=== PATIENT | male | born 1975 | race African-American/Black ===

== ENCOUNTER 2023-12-31 07:06 | Emergency (ER) | payer OTHER, SELFPAY ==
--- OUTSIDE RECORDS SUMMARY | 2023-12-31 07:09 | XMS REPORT | Continuity of Care Document ---
Author Name Unknown Address [address] [place] [address] [address] [place] [address] [facility] thconnect Address [address] [place] [address] [address] [place] [address] Care Team Providers Care Center Administrator Name Role Phone LAB90 Attending Clinician Unavailable JAKE MOTA Attending Clinician Unavailab LORETO Valadez Attending Clinician Unavailable PL, TECH 1 Attending Clinician Unavailable NITIN HEREDIA Attending Clinician UnaKAELYN Ibarra Attending Clinician Unavail able [id number] Attending Clinician Unavailable Payers Payer Name Policy Type Policy Number Effective Date Expirati on Date Source CIGNA-CIGNA/PPO 2 [id number] 2022 00:00:00 Problems Condition Name Condition Details Condition Category Status Onset Date Resolution Date Last Treatment Date Treating Clinician Comments Source Hyperlipid emia Hyperlipid emia Disease Active 2021-02 00:00: 00 Winter Roberson - Externa l Primary hypertensi on Primary hypertensi on Disease Active 2021-02 00:00: 00 Winter Roberson - Externa l Type 2 diabetes mellitus without complicati on, without long-term current use of insulin (multi HCC) Type 2 diabetes mellitus without complicati on, without long-term current use of insulin (multi HCC) Disease Active 2021-02 00:00: 00 Winter Roberson - Externa l ADHD ADHD Disease Active 2021-02 00:00: 00 Winter Roberson - Externa l Allergic rhinitis Allergic rhinitis Disease Active 2021-02 00:00: 00 Winter Roberson - Externa l Gastroesop hageal reflux disease without esophagiti s Gastroesop hageal reflux disease without esophagiti s Disease Active 2021-02 00:00: 00 Winter Alvaradoa l Social History Social Habit Start Date Stop Date Quantity Comments Source Sexual orientation Eliseo espinosa Serileyirineo - External Alcoholic beverage intake 2023-11-04 00:00:00 2023-11-04 00:00:00 Current drinker of alcohol (finding) Winter rileyirineo - External Alcohol intake 2023-05-10 00:00:00 2023-05-10 00:00:00 Current drinker of alcohol (finding) Winter rileyirineo - External Tobacco use and exposure 2022-01-12 00:00:00 2022-01-12 00:00:00 Smokeless tobacco non-user Winter Roberson - External History of Social function 2022-01-12 00:00:00 2022-01-12 00:00:00 Winter Roberson - External Sex 2022-01-09 17:59:58 2022-01-09 17:59:58 Male (finding) Winter Serileyirineo - External Sex assigned at 1975 00:00:00 1975 00:00:00 Winter rileyirineo - External Smoking Status Start Date Stop Date Source Never smoked tobacco Winter Roberson - External Medications Ordered Medication Name Filled Medication Name Start Date Stop Date Current Medication? Ordering Clinician Indication Dosage Frequency Signature (SIG) Comments Components Source Levocetiriz ine Dihydrochlo ride 5 MG oral Tablet 11-03 13:31: 48 Yes 5mg Take 1 tablet (5 mg total) by mouth every day at 5:00 PM. Winter Blanchard l Glimepiride 4 MG oral Tablet 11-03 13:31: 48 Yes 4mg Take 1 tablet (4 mg total) by mouth every morning (before breakfast) . Winter Roberson - Christianoa l Levocetiriz ine Dihydrochlo ride 5 MG oral Tablet 05-09 14:51: 55 Yes 5mg Take 1 tablet (5 mg total) by mouth every day at 5:00 PM. Winter Roberson - Externa l Glimepiride 4 MG oral Tablet 05-09 14:51: 55 Yes 4mg Take 1 tablet (4 mg total) by mouth every morning (before breakfast) . Winter gleason Amphetamine -Dextroamph etamine 30 MG oral Tablet - 00:00: 00 11-03 00:00 :00 No [id number] 30mg QD Take 1 tablet (30 mg total) by mouth daily. Winter gleason Atorvastati n Calcium 10 MG oral Tablet - 00:00: 00 Yes [id number] 10mg QD Take 1 tablet (10 mg total) by mouth daily. Winter gleason OZEMPIC (0.25 or 0.5 mg/dose) 2 mg/3 mL SQ Solution Pen-Injecto r 04-16 00:00: 00 11-03 00:00 :00 No INJECT 0.5 MG SUBCUTANEO USLY WEEKLY. Winter gleason Triamcinolo ne Acetonide (KENALOG) 40 mg/mL 2022-02 20:45: 00 11-17 21:06 :00 No [id number] 40mg Winter gleason Triamcinolo ne Acetonide (KENALOG) 40 mg/mL 2022-02 20:45: 00 11-17 21:06 :00 No [id number] 1mL 40 mg (1 mL), intramuscu lar, ONCE, On Wed11/17/22 at 1545, For 1 dose Winter gleason Levocetiriz ine Dihydrochlo ride 5 MG oral Tablet 2022-02 14:58: 50 Yes 5mg Take 1 tablet (5 mg total) by mouth every day at 5:00 PM. Winter gleason Glimepiride 4 MG oral Tablet 2022-02 14:58: 50 Yes 4mg Take 1 tablet (4 mg total) by mouth every morning (before breakfast) . Winter gleason Ozempic, 2 MG/DOSE, subcutaneou s 9-13 00:00: 00 Yes INJECT TWO (2) MG UNDER THE SKIN ONCE A WEEK. Winter gleason Trazodone HCl 50 MG oral Tablet 9-12 00:00: 00 11-03 00:00 :00 No [id number] Take 1 - 2 tablets as needed at night for insomnia. Winter gleason Fenofibrate 145 MG oral Tablet - 00:00: 00 Yes [id number] 145mg QD Take 1 tablet (145 mg total) by mouth daily Winter gleason Losartan Potassium (COZAAR) 100 MG oral Tablet - 00:00: 00 Yes [id number] 100mg QD Take 1 tablet (100 mg total) by mouth daily Winter gleason Omeprazole 40 MG oral Delayed Release Capsule 03-31 00:00: 00 Yes [id number] 40mg QD Take 1 capsule (40 mg total) by mouth daily Winter gleason Atorvastati n Calcium 10 MG oral Tablet 03-31 00:00: 00 Yes [id number] 10mg Take 1 tablet (10 mg total) by mouth daily Winter gleason Amphetamine -Dextroamph etamine 30 MG oral Tablet 03-31 00:00: 00 05-09 00:00 :00 No [id number] 30mg Take 1 tablet (30 mg total) by mouth daily Winter gleason Amphetamine -Dextroamph etamine (ADDERALL XR, 30MG,) 30 MG oral Capsule 24 Hour Sustained Release 03-13 00:00: 00 04-13 05:59 :00 No [id number] 30mg Take 1 capsule (30 mg total) by mouth every morning Winter gleason OZEMPIC (0.25 or 0.5 mg/dose) 2 mg/1.5 mL SQ Solution Pen-Injecto r 03-05 00:00: 00 11-03 00:00 :00 No INJECT 0.25 MG UNDER THE SKIN ONCE WEEKLY. Winter gleason Tadalafil 20 MG oral Tablet -24 00:00: 00 Yes TAKE ONE (1) TABLET(S) BY MOUTH DAILY NEEDED 30 MINUTES BEFORE ANTICIPATE D SEXUAL INTERCOURS E. Winter gleason Amphetamine -Dextroamph etamine (ADDERALL XR, 30MG,) 30 MG oral Capsule 24 Hour Sustained Release 02-11 00:00: 00 03-14 05:59 :00 No [id number] 30mg Take 1 capsule (30 mg total) by mouth every morning Winter gleason Dicyclomine HCl 20 MG oral Tablet 2021-02 00:00: 00 Yes Winter gleason Ferrous Sulfate 325 (65 Fe) MG oral Tablet Delayed Response 2021-02 00:00: 00 11-03 00:00 :00 No Winter gleason Amphetamine -Dextroamph etamine 30 MG oral Tablet 2021-02 00:00: 00 11-17 00:00 :00 No [id number] 30mg Take 1 tablet (30 mg total) by mouth daily Winter gleason Amlodipine Besylate 10 MG oral Tablet 2021-02 00:00: 00 Yes Winter gleason Ondansetron HCl 4 MG oral Tablet 2021-02 00:00: 00 Yes Winter gleason Amphetamine -Dextroamph etamine (ADDERALL, 30MG,) 30 MG oral Tablet 2021-02 15:29: 14 Yes 30mg Take 30 mg by mouth daily Winter gleason Fenofibrate 145 MG oral Tablet 2021-02 15:29: 14 Yes 145mg Take 145 mg by mouth daily Winter gleason Losartan Potassium 100 MG oral Tablet 2021-02 15:29: 14 Yes 100mg Take 100 mg by mouth daily Winter gleason Levocetiriz ine Dihydrochlo ride 5 MG oral Tablet 2021-02 15:29: 14 Yes 5mg Take 5 mg by mouth every day at 5:00 PM Winter gleason Glimepiride 4 MG oral Tablet 2021-02 15:29: 14 Yes 4mg Take 4 mg by mouth every morning (before breakfast) Winter gleason Trazodone HCl 50 MG oral Tablet 2021-02 00:00: 00 Yes [id number] 50mg Take 1 tablet (50 mg total) by mouth nightly Take 1-2 tablets by mouth as needed for sleep Winter gleason Omeprazole 40 MG oral Delayed Release Capsule 2021-02 00:00: 00 Yes [id number] 40mg Take 1 capsule (40 mg total) by mouth daily Winter gleason Amphetamine -Dextroamph etamine (ADDERALL XR, 30MG,) 30 MG oral Capsule 24 Hour Sustained Release 2021-02 00:00: 00 02-12 05:59 :00 No [id number] 30mg Take 1 capsule (30 mg total) by mouth every morning Winter gleason Testosteron e Cypionate (DEPO-TESTO STERONE) 200 MG/ML intramuscul ar Solution 2021-02 00:00: 00 Yes Winter gleason Zolpidem Tartrate 10 MG oral Tablet 2021-02 00:00: 00 Yes Winter gleason Atorvastati n Calcium 10 MG oral Tablet 2021-02 00:00: 00 Yes Winter gleason Vital Signs Vital Name Observation Time Observation Value Comments S ource Systolic blood pressure 2023-11-04 18:23:00 118 mm[Hg] Winter bryant - External Diastolic blood pressure 2023-11-04 18:23:00 70 mm[Hg] Winter bryant - External Heart rate 2023-11-04 18:23:00 88 /min Hieu Roberson - External Body temperature 2023-11-04 18:23:00 36.61 Filomena Winter Roberson - External Respiratory rate 2023-11-04 18:23:00 18 /min Winter Roberson - External Body height 2023-11-04 18:23:00 175.3 cm Jaqueline Roberson - External Body weight 2023-11-04 18:23:00 93.157 kg Jaqueline Roberson - External BMI 2023-11-04 18:23:00 30.33 kg/m2 Jaqueline ey Seybold - External Oxygen saturation in Arterial blood by Pulse oximetry 2023-11-04 18:23:00 99 /min Winter Seybo ld - External Body height 2023-05-10 19:50:00 175.3 cm Jaqueline ey Seybold - External Body weight 2023-05-10 19:50:00 94.348 kg Jaqueline ey Seybold - External BMI 2023-05-10 19:50:00 30.72 kg/m2 Jaqueline ey Seybold - External Oxygen saturation in Arterial blood by Pulse oximetry 2023-05-10 19:50:00 98 /min Winter Seybo ld - External Systolic blood pressure 2023-05-10 19:50:00 100 mm[Hg] Winter Seybo ld - External Diastolic blood pressure 2023-05-10 19:50:00 64 mm[Hg] Winter Seybo ld - External Heart rate 2023-05-10 19:50:00 102 /min Kelse y Seybold - External Body temperature 2023-05-10 19:50:00 36.28 Filomena Winter Seybold - External Respiratory rate 2023-05-10 19:50:00 18 /min Winter Seybold - External Systolic blood pressure 2022-11-17 19:55:00 136 mm[Hg] Winter Seybo ld - External Diastolic blood pressure 2022-11-17 19:55:00 80 mm[Hg] Winter Seybo ld - External Heart rate 2022-11-17 19:55:00 80 /min Kelse y Seybold - External Body temperature 2022-11-17 19:55:00 36.61 Filomena Winter Seybold - External Respiratory rate 2022-11-17 19:55:00 18 /min Winter Seybold - External Body height 2022-11-17 19:55:00 175.3 cm Jaqueline ey Seybold - External Body weight 2022-11-17 19:55:00 91.286 kg Jaqueline ey Seybold - External BMI 2022-11-17 19:55:00 29.72 kg/m2 Jaqueline ey Seybold - External Oxygen saturation in Arterial blood by Pulse oximetry 2022-11-17 19:55:00 98 /min Winter Seybo ld - External Systolic blood pressure 2022-01-12 21:23:00 134 mm[Hg] Winter Pazo ld - External Diastolic blood pressure 2022-01-12 21:23:00 67 mm[Hg] Winter Ortiz ld - External Heart rate 2022-01-12 21:23:00 78 /min Hieu Roberson - External Body temperature 2022-01-12 21:23:00 37.06 Filomena Winter Ashleyybold - External Respiratory rate 2022-01-12 21:23:00 14 /min Winter Roberson - External Body height 2022-01-12 21:23:00 175.3 cm Jaqueline belcher Seybold - External Body weight 2022-01-12 21:23:00 86.909 kg Jaqueline belcher Seybirineo - External BMI 2022-01-12 21:23:00 28.29 kg/m2 Jaqueline belcher Seybirineo - External Oxygen saturation in Arterial blood by Pulse oximetry 2022-01-12 21:23:00 99 /min Winter Ortiz ld - External Encounters Start Date/Time End Date/Time Encounter Type Admission Type Attending Rust Care Department Encounter ID Source 2023-12-27 09:05:00 2023-12-27 09:05:00 Outpatient LAB90 WINTER THOMAS [id number] Winter janie 2023-12-13 00:00:00 2023-12-13 00:00:00 Outpatient JAKE MOTA [id number] Winter irineo 2023-11-04 13:30:00 2023-11-04 13:30:00 Outpatient JAKE MOTA [id number] Winter ybirineo 2023-11-04 00:00:00 2023-11-04 00:00:00 Outpatient LORETO SHEPPARD [id number] Winter ybirineo 2023-11-03 00:00:00 2023-11-03 00:00:00 Outpatient LORETO SHEPPARD [id number] Winter ybirineo 2023-09-26 00:00:00 2023-09-26 00:00:00 Outpatient JAKE MOTA [id number] Winter ybirineo 2023-07-26 00:00:00 2023-07-26 00:00:00 Outpatient JAKE MOTA WINTER [id number] Winter Ashleyirineo 2023-06-16 00:00:00 2023-06-16 00:00:00 Outpatient JAKE MOTA WINTER [id number] Winter Ashleyirineo 2023-06-14 13:30:00 2023-06-14 13:30:[address], TECH WINTER WINTER [id number] Winter [facility] 2023-06-14 11:00:00 2023-06-14 11:00:00 Outpatient JAKE MOTA WINTER [id number] Winter [facility] 2023-06-07 09:05:00 2023-06-07 09:05:00 Outpatient LAB90 WINTER WINTER [id number] Winter [facility] 2023-06-04 11:00:00 2023-06-04 11:00:[address], TECH WINTER WINTER [id number] Winter [facility] 2023-05-31 14:30:00 2023-05-31 14:30:[address], TECH WINTER WINTER [id number] Winter [facility] 2023-05-28 00:00:00 2023-05-28 00:00:00 Outpatient [facility] [id number] [facility] 2023-05-17 00:00:00 2023-05-17 00:00:00 Outpatient JAKE MOTA WINTER [id number] Winter [facility] 2023-05-10 14:30:00 2023-05-10 14:30:00 Outpatient JAKE MOTA [facility] [id number] [facility] 2023-05-10 00:00:00 2023-05-10 00:00:00 Outpatient LORETO SHEPPARD [id number] [facility] 2023-04-21 00:00:00 2023-04-21 00:00:00 Outpatient JAKE MOTA WINTER THOMAS [id number] [facility] 2023-04-16 00:00:00 2023-04-16 00:00:00 Outpatient NITIN HEREDIA WINTER THOMAS [id number] [facility] 2022-11-17 15:00:00 2022-11-17 15:00:00 Outpatient JAKE MOTA WINTER THOM[facility] [id number] [facility] 2022-10-19 00:00:00 2022-10-19 00:00:00 Outpatient YANTAWNYAROSAS THOMAS [id number] [facility] 2022-08-31 00:00:00 2022-08-31 00:00:00 Outpatient YAN NITIN THOMAS [id number] [facility] 2022-04-13 08:00:00 2022-04-13 08:00:00 [id number] [facility] 2022-03-30 00:00:00 2022-03-30 00:00:00 Outpatient VALARIE LORETO [facility] [id number] [facility] 2022-02-15 00:00:00 2022-02-15 00:00:00 Outpatient NITIN HEREDIA [facility] [id number] [facility] 2022-02-05 14:30:00 2022-02-05 14:30:00 Outpatient RODARTEKAELYN [facility] [id number] [facility] 2022-02-05 00:00:00 2022-02-05 00:00:00 Outpatient CINDYOSCARLORETO [facility] [id number] [facility] 2022-01-27 00:00:00 2022-01-27 00:00:00 Outpatient YAN, NITIN THOMAS [id number] [facility] 2022-01-26 00:00:00 2022-01-26 00:00:00 Outpatient NITIN HEREDIA [id number] Winter Seybold 2022-01-12 16:00:00 2022-01-12 16:00:00 Outpatient [id number] WINTER THOMAS [id number] Winter Seybold 2022-01-12 15:15:00 2022-01-12 15:15:00 Outpatient NITIN HEREDIA WINTER THOMAS [id number] Winter Roberson Notes Date/Time Note Provider Source 2023-11-04 13:31:49 Chief Complaint [facility] 2023-05-10 14:54:11 Chief Complaint Patient presents with Follow-up Med [facility]
--- NOTE | 2023-12-31 08:03 | RAD REPORT ---
EXAMINATION: ONE VIEW CHEST XR CLINICAL INDICATION: Male, 48 years old.,CHEST PAIN TECHNIQUE: Frontal chest projection is submitted. Examination is limited by patient positioning and t echnique. COMPARISON: 07/19/2016 FINDINGS: The lungs are well inflated and clear. No pneumothorax or sizable effusion. The heart is normal in s ize. Mediastinal contours are unremarkable. IMPRESSION: No acute intrathoracic abnormalities.
[2023-12-31 08:22] LABS: Absolute Eosinophils 0.2 K/uL (0-0.5); Absolute Lymphocytes (CBC) 1.2 K/uL (0.7-4.9); Absolute Monocytes 0.2 K/uL (0.1-1.3); Absolute Neutrophil 1.2 K/uL (1.8-8.0); Basophils % 0.8 % (0-1.3); Eosinophils % 7.7 % (0-4.4); Hematocrit 38.4 % (39.6-49.0); Hemoglobin 12.5 g/dL (13.6-17.9); Lymphocytes % 41.1 % (15.3-44.8); MCH 23.2 pg (27.0-35.0); MCHC 32.5 g/dL (32.0-36.0); MCV 71.5 fL (80-100); MPV 7.7 fL (7.6-11.3); Monocytes % 7.6 % (3.3-12.3); Neutrophils % 42.8 % (41.7-73.7); Nucleated Red Blood Cells % 0.2 % (0-0); PT Prothrombin Time 12.3 SECONDS (9.4-12.5); Platelets 237 thou/uL (152-406); Protime INR 1.1; RBC Red Blood Cell Count 5.37 M/uL (4.33-5.43); Red Cell Distribution Width 15.5 % (12.1-15.2)
[2023-12-31 08:33] LABS: Specific Gravity 1.012 (1.005-1.030); Urine Bilirubin NEGATIVE (Negative); Urine Blood Negative (Negative); Urine Clarity Clear (Clear); Urine Color Light-Yellow (Yellow); Urine Glucose NEGATIVE (Negative); Urine Ketones NEGATIVE (Negative); Urine Microscopic Reflex YN NO UMIC; Urine Nitrite NEGATIVE (Negative); Urine Protein NEGATIVE (Negative); Urine Urobilinogen Normal (Normal); Urine pH 6.5 (5.0-7.0)
[2023-12-31 08:43] LABS: ALT/SGPT 48 U/L (16-61); AST/SGOT 40 U/L (15-37); Albumin 4.1 g/dL (3.4-5.0); Albumin/Globulin Ratio 1.2 (1.1-1.8); Alkaline Phosphatase 50 U/L (45-117); Anion Gap 7.9 mEq/L (5.0-15.0); BUN Blood Urea Nitrogen 12 mg/dL (7-18); Bicarbonate 25 mEq/L (21-32); Bilirubin Total 0.3 mg/dL (0.2-1.0); Globulin 3.5 g/dL (2.3-3.5); Glomerular Filtration Rate 86 ml/min (=/>90); Glucose Level 126 mg/dL (74-106); Lipase 56 U/L (13-75); NT PRO-BNP 48 pg/mL (<125); Potassium 3.9 mEq/L (3.5-5.1); Protein, Total 7.6 g/dL (6.4-8.2); Sodium Level 137 mEq/L (136-145); Troponin High Sensitivity 6.9 pg/mL (<58.9)
[2023-12-31 08:44] LABS: Bilirubin Direct < 0.2 mg/dL (0-0.2); Bilirubin Indirect, Calculated 0.1 mg/dL (0.2-0.8)
[2023-12-31 09:08] LABS: Barbiturates NEGATIVE (NEGATIVE); Benzodiazepines NEGATIVE (NEGATIVE); Cocaine NEGATIVE (NEGATIVE); METHAMPHETAM NEGATIVE (NEGATIVE); Methadone NEGATIVE (NEGATIVE); Opiates NEGATIVE (NEGATIVE); Phencyclidine NEGATIVE (NEGATIVE); THC Cannibis NEGATIVE (NEGATIVE)
[2023-12-31] MEDS ORDERED: LOSARTAN POTASSIUM 50 MG TABLET ONE (09:12)
[2023-12-31] MEDS ORDERED: ASPIRIN 81 MG CHEWABLE TABLET ONE (09:12)
[2023-12-31] MEDS ORDERED: AMLODIPINE 5 MG TAB ONE (09:12)
[2023-12-31] MEDS ORDERED: FAMOTIDINE 20 MG/2 ML VIAL IV ONE (09:12)
--- NOTE | 2023-12-31 10:33 | ER ---
Nurse's Notes [facility] Name: Miguelangel Mccarthy Jr Age: 48 yrs Sex: Male : 1975 Arrival Date: 12/31/2023 Time: 07:06 Bed 14 Private MD: Diagnosis: Chest pain, unspecified;Essential (primary) hypertension;Hyperlipidemia, unspecified Presentation: 12/30 07:10 Chief complaint: Patient states: chest pressure and shortness of breath that began at ss 0300 this morning. Pt reports he has been out of his HTN and high cholesterol medications for 30 days. Coronavirus screen: Client denies travel out of the [place] in the last 14 days. Ebola Screen: Patient denies exposure to infectious person. Patient denies travel to an Ebola-affected area in the 21 days before illness onset. Initial Sepsis Screen: Does the patient meet any 2 criteria? No. Patient's initial sepsis screen is negative. Does the patient have a suspected source of infection? No. Patient's initial sepsis screen is negative. Risk Assessment: Do you want to hurt yourself or someone else? Patient reports no desire to harm self or others. Onset of symptoms was December 31, 2023. 07:10 Method Of Arrival: Ambulatory ss 07:10 Acuity: MCKINLEY 3 ss Historical: - Allergies: 07:30 No Known Allergies; ss - PMHx: 07:30 Hypertensive disorder; high cholesterol; ss - Immunization history:: Client reports receiving the 2nd dose of the Covid vaccine. - Infectious Disease History:: Denies. - Social history:: Smoking status: Patient denies any tobacco usage or history of. - Family history:: not pertinent. Screenin:32 [facility] ED Fall Risk Assessment (Adult) History of falling in the last 3 months, ph including since admission No falls in past 3 months (0 pts) Confusion or Disorientation No (0 pts) Intoxicated or Sedated No (0 pts) Impaired Gait No (0 pts) Mobility Assist Device Used No (0 pt) Altered Elimination No (0 pt) Score/Fall Risk Level 0 - 2 = Low Risk Oriented to surroundings, Maintained a safe environment, Hourly rounding (assess needs \T\ fall precautionary measures) done. Abuse screen: Denies threats or abuse. Denies injuries from another. Nutritional screening: No deficits noted. Tuberculosis screening: No symptoms or risk factors identified. Assessment: 08:00 General: Appears in no apparent distress. comfortable, well groomed, Behavior is calm, ph cooperative, appropriate for age. Pain: Complains of pain in chest Pain does not radiate. Pain began 4 hours ago. Neuro: Level of Consciousness is awake, alert, obeys commands, Oriented to person, place, time, situation. Cardiovascular: Reports chest pain, shortness of breath. Respiratory: Airway is patent Respiratory effort is even, unlabored. GI: No signs and/or symptoms were reported involving the gastrointestinal system. Derm: Skin is pink, warm \T\ dry. Vital Signs: 07:10 BP 150 / 98; Pulse 80; Resp 16; Temp 97.9(O); Pulse Ox 100% on R/A; Weight 92.99 kg; ss Height 5 ft. 9 in. ; Pain 8/10; 08:30 BP 141 / 99; Pulse 81; Resp 18; Pulse Ox 98% on R/A; ph 09:30 BP 145 / 107; Pulse 83; Resp 18; Pulse Ox 100% on R/A; ph 10:58 BP 116 / 102; Pulse 73; Resp 16; Temp 97.5; Pulse Ox 99% on R/A; Pain 0/10; ph 07:10 Body Mass Index 30.27 (92.99 kg, 175.26 cm) ss 07:10 Pain Scale: Adult ss 10:58 Pain Scale: Adult ph ED Course: 07:10 Patient arrived in ED. ra3 07:11 Anson Rowland MD is Attending Physician. brandee 07:11 Brandi Rosenberg, RN is Primary Nurse. ph 07:30 Triage completed. ss 07:30 Arm band placed on left wrist. ss 07:32 EKG done, by ED staff, reviewed by Anson Rowland MD. zm 07:50 XRAY Chest (1 view) In Process Unspecified. EDMS 08:11 Initial lab(s) drawn, by dc, sent to lab. Inserted saline lock: 20 gauge in right zm forearm, using aseptic technique. Blood collected. Flushed with 10 mL NS. 08:11 Urine collected: clean catch specimen, clear. zm 08:12 UDS Sent. zm 08:12 Urinalysis w/ reflexes Sent. zm 08:12 Lipase Sent. zm 08:12 Basic Metabolic Panel Sent. zm 08:12 CBC with Diff Sent. zm 08:12 LFT's Sent. zm 08:12 Magnesium Sent. zm 08:12 NT PRO-BNP Sent. zm 08:12 PT-INR Sent. zm 08:12 Troponin HS Sent. zm 09:33 Patient has correct armband on for positive identification. Bed in low position. Call ph light in reach. Side rails up X 1. monitoring analyst on. Pulse ox on. NIBP on. Door closed. Noise minimized. Warm blanket given. 09:33 Patient maintains SpO2 saturation greater than 95% on room air. ph 10:00 EKG done, by ED staff, reviewed by Anson Rowland MD. ph 10:09 Repeat lab(s) drawn. by dc, sent to lab. em1 10:35 Duncan Lima MD is Referral Physician[facility] 11:07 No provider procedures requiring assistance completed. IV discontinued, intact, ph bleeding controlled, No redness/swelling at site. Pressure dressing applied. Administered Medications: 09:30 Drug: Aspirin PO Chewable Tablet 324 mg PO once; 81 mg tablets x 4 Route: PO; ph 10:56 Follow up: Response: No adverse reaction ph 09:30 Drug: Norvasc PO 5 mg PO once Route: PO; ph 10:57 Follow up: Response: No adverse reaction ph 09:30 Drug: Losartan PO 50 mg PO once Route: PO; ph 10:57 Follow up: Response: No adverse reaction ph 09:30 Drug: Famotidine IVP 20 mg IVP once; dilute with 10 mL 0.9% NaCl; give over 2 minutes ph Route: IVP; Site: right wrist; 10:57 Follow up: Response: No adverse reaction ph 10:56 Drug: Atorvastatin PO 20 mg PO once Route: PO; ph 10:58 Follow up: Response: No adverse reaction ph 10:57 Not Given (Other Intervention Used): ns 0.9% 1000 ml IV at 125 ml/hr continuous ph 10:57 Drug: GI Cocktail without - (Maalox PO 30 ml, Lidocaine Mucous Membrane 2 % 15 ph ml) PO once Route: PO; 10:57 Follow up: Response: No adverse reaction ph Medication: 09:33 VIS not applicable for this client. ph Outcome: 10:33 Discharge ordered by . brandee 11:07 Discharged to home ambulatory, ph 11:07 Condition: good 11:07 Discharge instructions given to patient, Instructed on discharge instructions, follow up and referral plans. medication usage, Demonstrated understanding of instructions, follow-up care, medications, Prescriptions given X 4, 11:07 Patient left the ED. ph Signatures: Dispatcher [employer] EDAnson Arteaga MD MD cha Martinez, Alvaro em1 Stephenie Castellanos RN RN ss Hall, Patricia, RN RN ph Martinez, Chelsey Hines 3
--- NOTE | 2023-12-31 10:33 | EDPHYS ---
Physician Documentation [facility] Name: Miguelangel Mccarthy Jr Age: 48 yrs Sex: Male : 1975 Arrival Date: 12/31/2023 Time: 07:06 Bed 14 Private MD: ED Physician Anson Rowland HPI: 12/30 07:40 This 48 yrs old Black Male presents to ER via Ambulatory with complaints of Chest Pain. brandee 07:40 The patient or guardian reports chest pain that is located primarily in the substernal brandee area. Onset: 1 day(s) ago. The pain does not radiate. Associated signs and symptoms: The patient has no apparent associated signs or symptoms. The chest pain is described as aching. Modifying factors: The symptoms are alleviated by nothing. the symptoms are aggravated by nothing. Severity of pain: At its worst the pain was moderate in the emergency department the pain has resolved and did so just prior to arrival. The patient has experienced similar episodes in the past, several times. Historical: - Allergies: 07:30 No Known Allergies; ss - PMHx: 07:30 Hypertensive disorder; high cholesterol; ss - Immunization history:: Client reports receiving the 2nd dose of the Covid vaccine. - Infectious Disease History:: Denies. - Social history:: Smoking status: Patient denies any tobacco usage or history of. - Family history:: not pertinent. ROS: 07:40 Constitutional: Negative for fever, chills, and weight loss, Eyes: Negative for injury, brandee pain, redness, and discharge, ENT: Negative for injury, pain, and discharge, Neck: Negative for injury, pain, and swelling, Respiratory: Negative for shortness of breath, cough, wheezing, and pleuritic chest pain, Abdomen/GI: Negative for abdominal pain, nausea, vomiting, diarrhea, and constipation, Back: Negative for injury and pain, : Negative for injury, bleeding, discharge, and swelling, MS/Extremity: Negative for injury and deformity, Skin: Negative for injury, rash, and discoloration, Neuro: Negative for headache, weakness, numbness, tingling, and seizure, Psych: Negative for depression, anxiety, suicide ideation, homicidal ideation, and hallucinations, Allergy/Immunology: Negative for hives, rash, and allergies, Endocrine: Negative for neck swelling, polydipsia, polyuria, polyphagia, and marked weight changes, Hematologic/Lymphatic: Negative for swollen nodes, abnormal bleeding, and unusual bruising, 07:40 Cardiovascular: Positive for chest pain, Exam: 07:40 Constitutional: This is a well developed, well nourished patient who is awake, alert, brandee and in no acute distress. Head/Face: Normocephalic, atraumatic. Eyes: Pupils equal round and reactive to light, extra-ocular motions intact. Lids and lashes normal. Conjunctiva and sclera are non-icteric and not injected. Cornea within normal limits. Periorbital areas with no swelling, redness, or edema. ENT: Nares patent. No nasal discharge, no septal abnormalities noted. Tympanic membranes are normal and external auditory canals are clear. Oropharynx with no redness, swelling, or masses, exudates, or evidence of obstruction, uvula midline. Mucous membranes moist. Neck: Trachea midline, no thyromegaly or masses palpated, and no cervical lymphadenopathy. Supple, full range of motion without nuchal rigidity, or vertebral point tenderness. No Meningismus. Chest/axilla: Normal chest wall appearance and motion. Nontender with no deformity. No lesions are appreciated. Cardiovascular: Regular rate and rhythm with a normal S1 and S2. No gallops, murmurs, or rubs. Normal PMI, no JVD. No pulse deficits. Respiratory: Lungs have equal breath sounds bilaterally, clear to auscultation and percussion. No rales, rhonchi or wheezes noted. No increased work of breathing, no retractions or nasal flaring. Abdomen/GI: Soft, non-tender, with normal bowel sounds. No distension or tympany. No guarding or rebound. No evidence of tenderness throughout. Back: No spinal tenderness. No costovertebral tenderness. Full range of motion. Skin: Warm, dry with normal turgor. Normal color with no rashes, no lesions, and no evidence of cellulitis. MS/ Extremity: Pulses equal, no cyanosis. Neurovascular intact. Full, normal range of motion. Neuro: Awake and alert, GCS 15, oriented to person, place, time, and situation. Cranial nerves II-XII grossly intact. Motor strength 5/5 in all extremities. Sensory grossly intact. Cerebellar exam normal. Normal gait. Psych: Awake, alert, with orientation to person, place and time. Behavior, mood, and affect are within normal limits. 07:40 Musculoskeletal/extremity: DVT Exam: No signs of deep vein thrombosis. no pain, no swelling, no tenderness, negative Homans' sign noted on exam, no appreciated bluish discoloration, no erythema, no increased warmth, 07:50 ECG was reviewed by the Attending Physician. [facility] 10:36 ECG was reviewed by the Attending Physician. [facility] Vital Signs: 07:10 BP 150 / 98; Pulse 80; Resp 16; Temp 97.9(O); Pulse Ox 100% on R/A; Weight 92.99 kg; ss Height 5 ft. 9 in. ; Pain 8/10; 08:30 BP 141 / 99; Pulse 81; Resp 18; Pulse Ox 98% on R/A; ph 09:30 BP 145 / 107; Pulse 83; Resp 18; Pulse Ox 100% on R/A; ph 10:58 BP 116 / 102; Pulse 73; Resp 16; Temp 97.5; Pulse Ox 99% on R/A; Pain 0/10; ph 07:10 Body Mass Index 30.27 (92.99 kg, 175.26 cm) ss 07:10 Pain Scale: Adult ss 10:58 Pain Scale: Adult ph MDM: 07:11 Medical Screening Exam initiated [facility] 07:40 Differential diagnosis: abnormal EKG, acute myocardial infarction, acute pericarditis, brandee chest wall pain, Cholelithiasis costochondritis, esophagitis, gastritis, hiatal hernia, pancreatitis, peptic ulcer disease, pericarditis, pleurisy, pulmonary embolus, stable angina, thoracic aortic disection, unstable angina. HEART Score: History: Slightly Suspicious (0), ECG: Non specific repolarization disturbance / LBTB / PM (1), Age: > 45 and < 65 years (1), Risk Factors: > or = 3 Risk factors for atherosclerotic disease (2), [Hypercholesterolemia] [Hypertension] [+ Family HX] Troponin: < or = 1 x Normal Limit (0). The patient was given aspirin in the Emergency Department. LAURE Risk Score: 1 - Three or more CAD risk factors, 1- Known CAD, 1 - Recent [<24hrs] Severe Angina, TOTAL SCORE = 3. Data reviewed: vital signs, nurses notes, lab test result(s). Consideration of Admission/Observation Escalation of care including admission/observation considered. I considered the following discharge prescriptions or medication management in the emergency department Medications were administered in the Emergency Department. See MAR. Test considered but Not performed: Ultrasound echo. 12/30 07:12 Order name: Basic Metabolic Panel; Complete Time: 08:45 [facility] 12/30 07:12 Order name: CBC with Diff; Complete Time: 08:45 [facility] 12/30 07:12 Order name: LFT's; Complete Time: 08:45 [facility] 12/30 07:12 Order name: Magnesium; Complete Time: 08:45 [facility] 12/30 07:12 Order name: NT PRO-BNP; Complete Time: 08:45 [facility] 12/30 07:12 Order name: PT-INR; Complete Time: 08:45 [facility] 12/30 07:12 Order name: Troponin HS; Complete Time: 08:45 [facility] 12/30 07:12 Order name: Lipase; Complete Time: 08:45 [facility] 12/30 07:12 Order name: Urinalysis w/ reflexes; Complete Time: 08:45 [facility] 12/30 07:12 Order name: UDS; Complete Time: 10:20 [facility] 12/30 07:49 Order name: Troponin High Sensitivity: 10 am; Complete Time: 10:32 [facility] 12/30 07:12 Order name: XRAY Chest (1 view); Complete Time: 08:45 [facility] 12/30 07:50 Order name: EKG; Complete Time: 07:50 [facility] 12/30 07:12 Order name: Cardiac monitoring; Complete Time: 07:32 [facility] 12/30 07:12 Order name: EKG - Nurse/Tech; Complete Time: 07:32 [facility] 12/30 07:12 Order name: IV Saline Lock; Complete Time: 08:12 [facility] 12/30 07:12 Order name: Labs collected and sent; Complete Time: 08:12 [facility] 12/30 07:12 Order name: O2 Per Protocol; Complete Time: 07:32 [facility] 12/30 07:12 Order name: O2 Sat Monitoring; Complete Time: 07:32 [facility] 12/30 07:50 Order name: EKG - Nurse/Tech; Complete Time: 08:11 [facility] 12/30 10:31 Order name: EKG - Nurse/Tech; Complete Time: 10:31 ph EC:50 Rate is 81 beats/min. Rhythm is regular. QRS [place] is Normal. UT interval is normal. QRS brandee interval is normal. QT interval is normal. No Q waves. T waves are Normal. No ST changes noted. Clinical impression: NSR w/ Non-specific ST/T Changes and No evidence of ischemia. Interpreted by me. Reviewed by me. 10:36 Rate is 79 beats/min. Rhythm is regular. QRS [place] is Normal. UT interval is normal. QRS brandee interval is normal. QT interval is normal. No Q waves. T waves are Normal. No ST changes noted. Clinical impression: Normal ECG and No evidence of ischemia. Interpreted by me. Reviewed by me. Administered Medications: 09:30 Drug: Aspirin PO Chewable Tablet 324 mg PO once; 81 mg tablets x 4 Route: PO; ph 10:56 Follow up: Response: No adverse reaction ph 09:30 Drug: Norvasc PO 5 mg PO once Route: PO; ph 10:57 Follow up: Response: No adverse reaction ph 09:30 Drug: Losartan PO 50 mg PO once Route: PO; ph 10:57 Follow up: Response: No adverse reaction ph 09:30 Drug: Famotidine IVP 20 mg IVP once; dilute with 10 mL 0.9% NaCl; give over 2 minutes ph Route: IVP; Site: right wrist; 10:57 Follow up: Response: No adverse reaction ph 10:56 Drug: Atorvastatin PO 20 mg PO once Route: PO; ph 10:58 Follow up: Response: No adverse reaction ph 10:57 Not Given (Other Intervention Used): ns 0.9% 1000 ml IV at 125 ml/hr continuous ph 10:57 Drug: GI Cocktail without - (Maalox PO 30 ml, Lidocaine Mucous Membrane 2 % 15 ph ml) PO once Route: PO; 10:57 Follow up: Response: No adverse reaction ph Disposition Summary: 12/31/23 10:33 Discharge Ordered Notes: Location: Home brandee Problem: new brandee Symptoms: have improved brandee Condition: Stable brandee Diagnosis - Chest pain, unspecified brandee - Essential (primary) hypertension brandee - Hyperlipidemia, unspecified brandee Followup: brandee - With: Private Physician - When: 2 - 3 days - Reason: Recheck today's complaints, Continuance of care, Re-evaluation by your physician Followup: brandee - With: Duncan Lima MD - When: 2 - 3 days - Reason: Recheck today's complaints, Re-evaluation by your physician Discharge Instructions: - Discharge Summary Sheet brandee - Nonspecific Chest Pain, Adult brandee - Potassium Content of Foods brandee - Hypertension, Adult brandee - Nonspecific Chest Pain, Adult, [id number] brandee - Hypertension, Adult, [id number] brandee - Aspirin and Your Heart [facility] Forms: - Medication Reconciliation Form brandee - Antibiotic Education brandee - Prescription Opioid Use brandee - Patient Portal Instructions brandee - Leadership Thank You Letter brandee - Work release form ph Prescriptions: - Lipitor 20 mg Oral tablet - take 1 tablet ORAL route every day at bedtime; 30 tablet; Refills: 0, Product [facility] Selection Permitted - losartan-hydrochlorothiazide 50-12.5 mg Oral tablet - take 1 tablet ORAL route daily; 30 tablet; Refills: 0, Product Selection [facility] Permitted - Norvasc 10 mg Oral Tablet - take 1 tablet ORAL route once daily; 30 tablet; Refills: 0, Product Selection [facility] Permitted - Pepcid 20 mg Oral tablet - take 1 tablet ORAL route every 12 hours for 21 days; 42 tablet; Refills: 0, [facility] Product Selection Permitted Signatures: Dispatcher [employer] EDMS Anson Rowland MD MD cha Blanchard, Shelby, RN RN Brandi Rosenberg RN RN ph Corrections: (The following items were deleted from the chart) 07:12 07:12 BASIC METABOLIC PANEL+C.LAB.BRZ ordered. EDMS EDMS 07:12 07:12 CBC+H.LAB.BRZ ordered. EDMS EDMS 07:12 07:12 HEPATIC FUNCTION+C.LAB.BRZ ordered. EDMS EDMS 07:12 07:12 MAGNESIUM+C.LAB.BRZ ordered. EDMS EDMS 07:12 07:12 PROBNP+C.LAB.BRZ ordered. EDMS EDMS 07:12 07:12 PROTIME (+INR)+COAG.LAB.BRZ ordered. EDMS EDMS 07:12 07:12 Troponin High Sensitivity+C.LAB.BRZ ordered. EDMS EDMS 07:12 07:12 LIPASE+C.LAB.BRZ ordered. EDMS EDMS 07:12 07:12 Urinalysis+U.LAB.BRZ ordered. EDMS EDMS 07:12 07:12 URINE DRUG SCREEN+UC.LAB.BRZ ordered. EDMS EDMS 07:13 07:13 Chest Single View+RAD.RAD.BRZ ordered. EDMS EDMS
[2023-12-31] MEDS ORDERED: ATORVASTATIN 20 MG TAB ONE (10:51)
[2023-12-31] MEDS ORDERED: LIDOCAINE VISCOUS 2% 10ML ORAL SOLN ONE (10:52)
[2023-12-31] MEDS ORDERED: MAGNES/ALUMIN/SIMET 30ML UCUP ONE (10:52)
[2023-12-31 13:20] VITALS: BP 116/102; TEMP 97.5; O2SAT 99
--- NOTE | 2024-01-03 12:05 | EKG ---
Test Date: 2023-12-31 Test Time: 10:25:05 Picking Supervisor: PH MEASUREMENT RESULTS: Intervals: Rate: 79 MN: 188 QRSD: 88 QT: 354 QTc: 405 [place]: P: 44 MN: 188 QRS: 68 T: 36 INTERPRETIVE STATEMENTS: Normal sinus rhythm Normal ECG Compared to ECG 12/31/2023 07:14:41 No significant changes Electronically Signed On 01-03-24 12:02:10 FRAME CATCHER by Osmar Mcduffie
--- NOTE | 2024-01-03 12:05 | EKG ---
Test Date: 2023-12-31 Test Time: 07:14:41 Commercial Baker Helper: TAYLOR MEASUREMENT RESULTS: Intervals: Rate: 81 CO: 178 QRSD: 90 QT: 342 QTc: 397 [place]: P: 41 CO: 178 QRS: 67 T: 43 INTERPRETIVE STATEMENTS: Normal sinus rhythm Normal ECG Compared to ECG 07/20/2016 20:52:38 No significant changes Electronically Signed On 01-03-24 12:02:19 HOUSING COUNSELOR by Osmar Mcduffie
== END 2023-12-31 11:07 | disposition home or self-care (01) ==
LOC: ER 07:06
DX: R07.9 Chest pain, unspecified (principal); I10 Essential (primary) hypertension; E78.5 Hyperlipidemia, unspecified
CPT/HCPCS: 36415; 71045; 80048; 80076; 80307; 81003; 83690; 83735; 83880; 84484; 85025; 85610; 93005; 96374; 99285